=== PATIENT | female | born 1935 | race Caucasian/White ===

== ENCOUNTER → 2016-12-28 | Outpatient (CLI) | payer MEDICARE, MEDICAID | END | disposition home or self-care (01) | LOC: GMAJ 17:06 | PROVIDERS: ATTEND Family Medicine | DX: E03.9 Hypothyroidism, unspecified (principal) ==

== ENCOUNTER → 2018-01-18 | Outpatient (CLI) | payer MEDICARE, MEDICAID | LOC: GMAJ 17:43 | PROVIDERS: ATTEND Family Medicine | DX: E03.9 Hypothyroidism, unspecified (principal) ==

== ENCOUNTER → 2019-03-27 | Outpatient (CLI) | payer MEDICARE, MEDICAID | LOC: GMAJ 17:05 | PROVIDERS: ATTEND Family Medicine | DX: E03.9 Hypothyroidism, unspecified (principal); I10 Essential (primary) hypertension; E11.9 Type 2 diabetes mellitus without complications ==

== ENCOUNTER 2020-03-03 08:27 | Emergency (ER) | payer MEDICARE, MEDICAID ==
[2020-03-03] MEDS ORDERED: SODIUM CHLORIDE 0.9% 500ML 500 ML IVS ONE (09:21)
--- NOTE | 2020-03-03 12:19 | US ---
EXAM DESCRIPTION: Gall Bladder: ULTRASOUND. CLINICAL HISTORY: DIARRHEA, NAUSEA, VOMITING, BILIRUBIN 2.7. COMPARISON: None. TECHNIQUE: Transabdominal scanning: Alexandra-scale and Doppler modes. FINDINGS: Gallbladder: Slightly dilated with at least 2 echogenic stones in the dependent portion of the gallbladder with acoustic shadowing. The stones measures 7.5 and 9.2 mm in greatest diameter. No fluid around the gallbladder. No wall thickening. 2.5 mm. Non-tender with transducer pressure. Common bile duct: caliber 3.3 mm within normal limits. Liver: normal echogenicity; contour liver capsule smooth where seen. No fluid around the liver. Intrahepatic biliary ducts normal caliber. Doppler hepatopedal flow portal vein.. 9 mm caliber at the marilu hepatis normal. Long axis right lobe 13.6 cm. Pancreas: normal size Normal echogenicity. Duct not seen. Aorta: 1.6 cm proximal normal caliber. Right kidney: long axis is 9.0 cm.; volume 77.3 mL. Normal cortical thickness and echogenicity. No echogenic stones. No hydronephrosis.. IMPRESSION: 1. Cholelithiasis of the gallbladder with no fluid or tenderness. Common bile duct normal caliber. 2. Normal ultrasound liver pancreas. 3. Normal ultrasound of the kidney. Normal caliber proximal abdominal aorta. Electronically signed by: Macho Worthington MD 03/03/2020 12:17 PM CDT
--- NOTE | 2020-03-03 13:48 | ED.PDOC ---
History of Present Illness - General Chief Complaint: GI Problem Stated Complaint: diarrhea x3 days Time Seen by Provider: 03/03/20 08:45 Source: patient Exam Limitations: no limitations - History of Present Illness Initial Comments: 3D N/V/D X SEVERAL TIMES PER DAY OF EACH. CAN'T KEEP FLUIDS DOWN. DENIES PAIN. POS GEN WEAKNESS. Severity: moderate Improving Factors: nothing Worsening Factors: nothing Associated Symptoms: loss of appetite, nausea/vomiting, weakness Allergies/Adverse Reactions: Allergies Carbamazepine [From Tegretol] Allergy (Verified 08/02/12 13:31) Iodine Allergy (Verified 08/02/12 13:31) Meperidine [From Demerol HCl] Allergy (Verified 08/02/12 13:31) Home Medications: Ambulatory Orders Amoxicillin [Amoxicillin Susp 400/5] 6 ml PO TID #180 ml 02/16/14 Sulfa/Trimeth 800/160 (Ds) Tab [Bactrim DS] 1 tablet PO BID 3 Days #6 tablet 03/03/20 Review of Systems - Review of Systems Constitutional: States: weakness. Denies: chills, fever EENTM: States: no symptoms reported Respiratory: Denies: cough, short of breath Cardiology: Denies: chest pain, palpitations Gastrointestinal/Abdominal: States: diarrhea, nausea, vomiting. Denies: abdominal pain, constipation Genitourinary: States: no symptoms reported Musculoskeletal: States: no symptoms reported Skin: States: no symptoms reported Neurological: States: no symptoms reported Endocrine: States: no symptoms reported Hematologic/Lymphatic: States: no symptoms reported All other Systems: Reviewed and Negative Past Medical History (General) - Patient Medical History Hx Stroke: Yes Hx of COPD: No Hx Cardiac Disorders: No Hx Congestive Heart Failure: No Hx Hypertension: No Hx Diabetes: No - Social History Hx Tobacco Use: No Hx Alcohol Use: No Hx Substance Use: No Family Medical History - Family History Mother Family History: No Known Physical Exam - Physical Exam General Appearance: Alert, Well Groomed Eye Exam: bilateral normal, bilateral abnormal EOM Ears, Nose, Throat: hearing grossly normal, normal ENT inspection Neck: non-tender, full range of motion Respiratory: lungs clear, normal breath sounds Cardiovascular/Chest: normal peripheral pulses, regular rate, rhythm, no JVD Peripheral Pulses: radial,right: 2+, radial,left: 2+ Gastrointestinal/Abdominal: normal bowel sounds, non tender, soft, no organomegaly, no pulsatile mass Back Exam: no CVA tenderness, no vertebral tenderness Extremity: normal range of motion, normal inspection, no pedal edema Neurologic: no motor/sensory deficits, alert, normal mood/affect Skin Exam: normal color, warm/dry Lymphatic: no adenopathy Progress - Results/Orders Results/Orders: CBC - WBC 3.1, LEUKOPENIA. CMP - BILI 2.7. WILL ORDER U/S TO EVAL GB. UA - POS LEUK EST. UTI. RX BACTRIM DS X 3 D. COVID NEG. DEHYDRATION FROM N/V/D - 500 mL BOLUS. U/S = CHOLELITHIASIS. THIS AND/OR THE UTI CAN ACCOUNT FOR HER N/V/D. REFERRING TO GEN SURGEON TO FURTHER DISCUSS. Departure - Departure Clinical Impression: Dehydration, Bilirubinemia Cholelithiasis Qualifiers: Cholelithiasis location: gallbladder Cholecystitis presence: without cholecystitis Biliary obstruction: without biliary obstruction Qualified Code(s): K80.20 - Calculus of gallbladder without cholecystitis without obstruction Nausea & vomiting Qualifiers: Vomiting type: unspecified Vomiting Intractability: non-intractable Qualified Code(s): R11.2 - Nausea with vomiting, unspecified Diarrhea Qualifiers: Diarrhea type: unspecified type Qualified Code(s): R19.7 - Diarrhea, unspecified Leukopenia Qualifiers: Leukopenia type: unspecified Qualified Code(s): D72.819 - Decreased white blood cell count, unspecified UTI (urinary tract infection) Qualifiers: Urinary tract infection type: acute cystitis Hematuria presence: without hematuria Qualified Code(s): N30.00 - Acute cystitis without hematuria Disposition: Discharge to Home or Self Care Condition: Good Departure Forms: ED Discharge - Pt. Copy, Patient Portal Self Enrollment Diet: low fat, low cholesterol Referrals: Carlos Hall MD [Primary Care Provider] - 1-2 Weeks Prescriptions: Sulfa/Trimeth 800/160 (Ds) Tab [Bactrim DS] 1 tablet PO BID 3 Days #6 tablet Home Medications: Ambulatory Orders Amoxicillin [Amoxicillin Susp 400/5] 6 ml PO TID #180 ml 02/16/14 Sulfa/Trimeth 800/160 (Ds) Tab [Bactrim DS] 1 tablet PO BID 3 Days #6 tablet 03/03/20 Additional Instructions: You have a bladder infection, thus I am prescribing 3 days of antibiotic. Your gallbladder has gallstones. Both of these can cause the nausea, vomiting, and diarrhea. Please call Dr. Frank or Dr. Landa, general surgeons, to discuss further treatment for the gallstones.
[2020-03-03 14:06] VITALS: BP 141/92; TEMP 96.7; O2SAT 96
== END 2020-03-03 14:07 | disposition home or self-care (01) ==
LOC: ER 08:27
DX: K80.20 Calculus of gallbladder without cholecystitis without obstruction (principal); N30.00 Acute cystitis without hematuria; E86.0 Dehydration; E80.6 Other disorders of bilirubin metabolism; R19.7 Diarrhea, unspecified; D72.819 Decreased white blood cell count, unspecified; R11.2 Nausea with vomiting, unspecified; Z20.828 Contact with and (suspected) exposure to other viral communicable diseases; Z88.8 Allergy status to other drugs, medicaments and biological substances; Z91.041 Radiographic dye allergy status; Z86.73 Personal history of transient ischemic attack (TIA), and cerebral infarction without residual deficits
CPT/HCPCS: 36415; 76705; 80053; 81001; 85025; 87086; 87635; J7040

== ENCOUNTER → 2020-03-10 | Outpatient (CLI) | payer MEDICARE, MEDICAID | LOC: GMAJ 16:43 | PROVIDERS: ATTEND Family Medicine | DX: E03.9 Hypothyroidism, unspecified (principal); I50.9 Heart failure, unspecified; E11.9 Type 2 diabetes mellitus without complications; I10 Essential (primary) hypertension ==

== ENCOUNTER → 2020-05-28 | Outpatient (CLI) | payer MEDICARE, MEDICAID | LOC: GMAJ 10:46 | PROVIDERS: ATTEND Family Medicine | DX: E03.9 Hypothyroidism, unspecified (principal); I10 Essential (primary) hypertension; E11.9 Type 2 diabetes mellitus without complications ==

== ENCOUNTER 2020-08-11 09:44 | Emergency (ER) | payer MEDICARE, MEDICAID ==
[2020-08-11] MEDS ORDERED: SODIUM CHLORIDE 0.9% 1000ML 1,000 ML IVS ONE ×2 (10:33→11:21)
[2020-08-11] MEDS ORDERED: ONDANSETRON INJ 4 MG/2 ML VIAL IV ONE (10:33)
[2020-08-11] MEDS ORDERED: ONDANSETRON INJ 4 MG/2 ML VIAL ONE (10:33)
--- NOTE | 2020-08-11 10:41 | RAD ---
EXAM DESCRIPTION: Chest,1 View x-ray CLINICAL HISTORY: 85 years Female, confusion, cough COMPARISON: 01/27/2011 IMPRESSION: Heart size and pulmonary vascularity are within normal limits. The lungs are hyperexpanded. No confluent airspace consolidation, pleural effusion, or pneumothorax. No acute osseous abnormality. Electronically signed by: Eriberto Serrano MD 08/11/2020 10:40 AM SIDEROGRAPHIST
--- NOTE | 2020-08-11 11:22 | CT ---
EXAM DESCRIPTION: Head CLINICAL HISTORY: CONFUSION COMPARISON: 09/16/2010 TECHNIQUE: Multiple axial images of the head without contrast. Multiplanar reformatted images. This exam was performed according to our departmental dose-optimization program, which includes automated exposure control, adjustment of the mA and/or kV according to patient size and/or use of iterative reconstruction technique. FINDINGS: There is no CT evidence of intracranial hemorrhage, mass effect, or large territory infarction. Moderate to severe generalized volume loss. Moderate to severe patchy supratentorial white matter hypodensities. There are no abnormal extra-axial fluid collections. Calcific plaque in the visualized arteries. There is no acute calvarial defect. The visualized paranasal sinuses and the mastoids are clear. IMPRESSION: 1. No CT evidence of an acute intracranial abnormality. If there is concern for an acute or subacute infarct, consider follow-up MRI. 2. Advanced senescent changes. Electronically signed by: Eriberto Serrano MD 08/11/2020 11:20 AM [facility]
--- NOTE | 2020-08-11 12:28 | ED.PDOC ---
History of Present Illness - General Chief Complaint: General Stated Complaint: "not feeling well" Time Seen by Provider: 08/11/20 09:52 Source: patient Exam Limitations: clinical condition - PATIENT HAS MILD DEMENTIA, LIVES WITH HER SON WHO IS ALSO ILL - History of Present Illness Initial Comments: PATIENT PRESENTS WITH SEVERAL DAY HISTORY OF NOT FEELING WELL, SON WITH SIMILAR SYMPTOMS. DENIES SOB, +NAUSEA Severity: moderate Improving Factors: nothing Worsening Factors: nothing Allergies/Adverse Reactions: Allergies Carbamazepine [From Tegretol] Allergy (Verified 08/11/20 10:00) Iodine Allergy (Verified 08/11/20 10:00) Meperidine [From Demerol HCl] Allergy (Verified 08/11/20 10:00) Home Medications: Ambulatory Orders Aspirin [Aspirin Low Strength] 81 mg PO DAILY 03/18/20 Levothyroxine Sodium [Synthroid] 100 mcg PO BEDTIME 03/18/20 Metoprolol Tartrate 50 mg PO BID 03/18/20 Multiple Vitamins W/ Minerals [Multi For Her 50+] 1 tab PO DAILY 03/18/20 Review of Systems - Review of Systems Constitutional: States: weakness EENTM: States: no symptoms reported Respiratory: States: no symptoms reported Cardiology: States: no symptoms reported Gastrointestinal/Abdominal: States: nausea Genitourinary: States: no symptoms reported Skin: States: no symptoms reported Neurological: States: no symptoms reported Past Medical History (General) - Patient Medical History Hx Stroke: Yes Hx of COPD: No Hx Cardiac Disorders: No Hx Congestive Heart Failure: No Hx Hypertension: No Hx Diabetes: No Hx MRSA: No Surgical History: cholecystectomy - Vaccination History Hx Influenza Vaccination: Yes - Social History Hx Tobacco Use: No Hx Alcohol Use: No Hx Substance Use: No Family Medical History - Family History Mother Family History: No Known Physical Exam - Physical Exam General Appearance: Alert, Well Developed, Well Groomed, Well Hydrated, Well Nourished Ears, Nose, Throat: hearing grossly normal, normal ENT inspection, normal pharynx Neck: non-tender, full range of motion, supple Respiratory: chest non-tender, lungs clear, normal breath sounds, no respiratory distress, no accessory muscle use Cardiovascular/Chest: normal peripheral pulses, regular rate, rhythm, no edema, no gallop, no JVD, no murmur Gastrointestinal/Abdominal: normal bowel sounds, non tender, soft, no organomegaly Extremity: normal range of motion, non-tender, normal inspection Neurologic: alert, normal mood/affect, oriented x 3 Skin Exam: normal color, warm/dry, other - MILDLY DEMINISHED SKIN TURGER. Lymphatic: no adenopathy Departure - Departure Clinical Impression: COVID-19 Time of Disposition: 12:31 Disposition: Discharge to Home or Self Care Departure Forms: ED Discharge - Pt. Copy, Patient Portal Self Enrollment Instructions: Coronavirus Disease 2019 (COVID-19) Overview Referrals: Carlos Hall MD [Primary Care Provider] - 1-2 Weeks Home Medications: Ambulatory Orders Aspirin [Aspirin Low Strength] 81 mg PO DAILY 03/18/20 Levothyroxine Sodium [Synthroid] 100 mcg PO BEDTIME 03/18/20 Metoprolol Tartrate 50 mg PO BID 03/18/20 Multiple Vitamins W/ Minerals [Multi For Her 50+] 1 tab PO DAILY 03/18/20
[2020-08-11 14:48] VITALS: BP 132/79; TEMP 97.6; O2SAT 96
== END 2020-08-11 13:55 | disposition home or self-care (01) ==
LOC: ER 09:44
DX: U07.1 COVID-19 (principal); F03.90 Unspecified dementia, unspecified severity, without behavioral disturbance, psychotic disturbance, mood disturbance, and anxiety; Z86.73 Personal history of transient ischemic attack (TIA), and cerebral infarction without residual deficits; Z79.82 Long term (current) use of aspirin; Z79.899 Other long term (current) drug therapy; Z88.8 Allergy status to other drugs, medicaments and biological substances; Z91.041 Radiographic dye allergy status
CPT/HCPCS: 36415; 70450; 71045; 80053; 81001; 84484; 85025; 87086; 87635; 93005; J2405; J7030